=== PATIENT | female | born 1975 | race Caucasian/White ===

== ENCOUNTER → 2018-01-13 | Day surgery (SDC) | payer BC ==
[2018-01-12 10:03] LABS: BASOPHILS % (AUTO) 0.5 % (0-1); EOSINOPHILS # (AUTO) 0.1 X10'3 (0-0.9); EOSINOPHILS % (AUTO) 2.6 % (0-6); LYMPHOCYTES # (AUTO) 1.9 X10'3 (1.1-4.8); LYMPHOCYTES % (AUTO) 32.6 % (21-51); MEAN CORPUSCULAR HEMOGLOBIN 30.1 PG (27.0-31.0); MEAN CORPUSCULAR HGB CONC 34.9 % (33.0-36.5); MEAN CORPUSCULAR VOLUME 86.2 FL (78-98); MEAN PLATELET VOLUME 8.4 FL (7.4-10.4); MONOCYTES # (AUTO) 0.4 X10'3 (0-0.9); MONOCYTES % (AUTO) 6.5 % (2-12); NEUTROPHILS # (AUTO) 3.3 X10'3 (1.8-7.7); NEUTROPHILS % (AUTO) 57.8 % (42-75); PRE OP HEMATOCRIT 40.1 % (35.0-45.0); PRE OP PLATELET COUNT 275 X10'3 (140-440); RED BLOOD COUNT 4.65 X10'6 (4.20-5.60); RED CELL DISTRIBUTION WIDTH 14.5 % (11.5-14.5)
[2018-01-12 10:21] LABS: ALBUMIN 3.6 G/DL (3.4-5.0); ALBUMIN/GLOBULIN RATIO 0.9 (1.1-1.5); ALKALINE PHOSPHATASE 42 IU/L (46-116); BLOOD UREA NITROGEN 9 MG/DL (7-18); BUN/CREATININE RATIO 10.7 (6.6-38.0); CALCIUM 8.9 MG/DL (8.5-10.1); CHLORIDE 106 MMOL/L (99-107); CREATININE 0.84 MG/DL (0.40-0.90); PRE OP ALT 32 U/L (30-65); PRE OP ANION GAP 7 (8-16); PRE OP AST 17 U/L (10-37); PRE OP BILIRUB, TOTAL 0.3 MG/DL (0.0-1.0); PRE OP GLUCOSE 90 MG/DL (70-104); PRE OP POTASSIUM 4.1 MMOL/L (3.4-5.1); PRE OP SODIUM 141 MMOL/L (135-145); TOTAL CARBON DIOXIDE 27.9 MMOL/L (24-32); TOTAL PROTEIN 7.5 G/DL (6.4-8.2); eGFR 74 ML/MIN
[2018-01-12 10:36] LABS: HCG SERUM QL NEGATIVE
[~2018-01-13] VITALS: Ht 160 cm; Wt 105.2 kg
[2018-01-13] VITALS (9 sets, daily range): BP systolic 120–133; BP diastolic 72–79
[~2018-01-13] MED LIST: BUPIVAcaine 0.5% inj/PF 30 ml vial ONE; CITA20TA11 PO; LEVO150T PO; LIDOcaine 2% (20mg/ml) 5ml vial ONE; MORPHINE 2MG in 2ml NS syringe IV PRN; dexamethasone sod phosphate 4mg/ml inj. ONE; ePHEDrine 50MG/ML INJ. ONE; famotidine 20mg tablet PO ONE; fentaNYL/PF 50MCG/1 ML 2ML syringe IV PRN; fentaNYL/PF 50MCG/1 ML 2ML syringe ONE; hydrALAZINE 20mg/ml inj. IV PRN; labetalol 5mg/ml 20ml inj. IV PRN; midazolam 2 mg/2 ml injection ONE; morphine 4 MG/ML inj SYRINge IV PRN; ondansetron/PF 4mg/2ml inj IV PRN; ondansetron/PF 4mg/2ml inj ONE; oxyCODONE/APAP 5-325mg tablet PO ONE; propofol inj 20 ML IV ONE; ringers solution, lacted 1,000 ML IV SCH; rocuronium 10mg/ml inj IV ONE; sevoflurane 250ml liquid IH ONE
== END | disposition home or self-care (01) ==
LOC: PAS 09:52
PROVIDERS: ATTEND Obstetrics & Gynecology
DX: D27.0 Benign neoplasm of right ovary (principal); N83.8 Other noninflammatory disorders of ovary, fallopian tube and broad ligament; N73.6 Female pelvic peritoneal adhesions (postinfective); E03.9 Hypothyroidism, unspecified; F32.9 Major depressive disorder, single episode, unspecified; F41.9 Anxiety disorder, unspecified; E66.9 Obesity, unspecified; Z68.41 Body mass index [BMI] 40.0-44.9, adult; Z90.89 Acquired absence of other organs; Z90.711 Acquired absence of uterus with remaining cervical stump; Z98.890 Other specified postprocedural states; Z79.899 Other long term (current) drug therapy
CPT/HCPCS: 36415; 58661; 80053; 84703; 85025; 86885; 86900; 86901; J1100; J2001; J2250; J2270; J2405; J2704; J3010; J3490; J7120; A6250; A7000; J2274

== ENCOUNTER 2021-12-17 20:12 | Emergency (ER) | payer BC ==
[~2021-12-17] VITALS: Ht 160 cm; Wt 111.0 kg
[~2021-12-17 20:12] MED LIST changes: -BUPIVAcaine 0.5% inj/PF 30 ml vial ONE; -CITA20TA11 PO; +CITA20TA28 PO; -LIDOcaine 2% (20mg/ml) 5ml vial ONE; -MORPHINE 2MG in 2ml NS syringe IV PRN; -dexamethasone sod phosphate 4mg/ml inj. ONE; -ePHEDrine 50MG/ML INJ. ONE; -famotidine 20mg tablet PO ONE; -fentaNYL/PF 50MCG/1 ML 2ML syringe IV PRN; -fentaNYL/PF 50MCG/1 ML 2ML syringe ONE; -hydrALAZINE 20mg/ml inj. IV PRN; -labetalol 5mg/ml 20ml inj. IV PRN; -midazolam 2 mg/2 ml injection ONE; -morphine 4 MG/ML inj SYRINge IV PRN; -ondansetron/PF 4mg/2ml inj IV PRN; -ondansetron/PF 4mg/2ml inj ONE; -oxyCODONE/APAP 5-325mg tablet PO ONE; -propofol inj 20 ML IV ONE; -ringers solution, lacted 1,000 ML IV SCH; -rocuronium 10mg/ml inj IV ONE; -sevoflurane 250ml liquid IH ONE
[2021-12-17 20:58] LABS: BASOPHILS # (AUTO) 0.1 X10'3 (0-0.2); BASOPHILS % (AUTO) 0.7 % (0-1); EOSINOPHILS # (AUTO) 0.2 X10'3 (0-0.9); EOSINOPHILS % (AUTO) 2.7 % (0-6); HEMATOCRIT 43.7 % (35.0-45.0); HEMOGLOBIN 14.6 g/dl (12.0-16.0); LYMPHOCYTES # (AUTO) 2.9 X10'3 (1.1-4.8); LYMPHOCYTES % (AUTO) 35.1 % (21-51); MEAN CORPUSCULAR HEMOGLOBIN 29.6 PG (27.0-31.0); MEAN CORPUSCULAR HGB CONC 33.3 g/dL (33.0-36.5); MEAN CORPUSCULAR VOLUME 88.9 FL (78-98); MEAN PLATELET VOLUME 8.2 FL (7.4-10.4); MONOCYTES # (AUTO) 0.5 X10'3 (0-0.9); MONOCYTES % (AUTO) 6.5 % (2-12); NEUTROPHILS # (AUTO) 4.6 X10'3 (1.8-7.7); PLATELET COUNT 349 X10'3 (140-440); RED BLOOD COUNT 4.91 X10'6 (4.20-5.60); RED CELL DISTRIBUTION WIDTH 14.3 % (11.5-14.5); WHITE BLOOD COUNT 8.3 X10'3 (4.5-11.0)
[2021-12-17 21:12] LABS: ALANINE AMINOTRANSFERASE 36 U/L (12-78); ALBUMIN 3.9 G/DL (3.4-5.0); ALBUMIN/GLOBULIN RATIO 1.1 (1.1-1.5); ALKALINE PHOSPHATASE 52 IU/L (46-116); ANION GAP 11 (8-16); ASPARTATE AMINO TRANSFERASE 20 U/L (10-37); BILIRUBIN,TOTAL 0.2 MG/DL (0.1-1.0); BLOOD UREA NITROGEN 11 MG/DL (7-18); BUN/CREATININE RATIO 11.2 (6.6-38.0); CALCIUM 9.2 MG/DL (8.5-10.1); CHLORIDE 104 MMOL/L (99-107); CREATININE 0.98 MG/DL (0.40-0.90); GLUCOSE 108 MG/DL (70-104); POTASSIUM 3.8 MMOL/L (3.5-5.1); SODIUM 141 MMOL/L (135-145); TOTAL CARBON DIOXIDE 25.7 MMOL/L (24-32); TOTAL PROTEIN 7.5 G/DL (6.4-8.2); eGFR 61 ML/MIN
--- NOTE | 2021-12-18 | NUR ---
PT ROOMED. ASSUMED CARE.
[2021-12-18] MEDS ORDERED: aspirin 81mg tab.chew PO ONE (02:40)
[2021-12-18 02:53] VITALS: BP 144/94
== END 2021-12-18 02:59 | disposition home or self-care (01) ==
LOC: ER 20:14
DX: I10 Essential (primary) hypertension (principal)
CPT/HCPCS: 36415; 71045; 76700; 80053; 83880; 84484; 85025; 85651; 93005; 99285

== ENCOUNTER 2022-06-22 07:50 | Emergency (ER) | payer BC ==
[~2022-06-22] VITALS: Ht 160 cm; Wt 111.8 kg
[2022-06-22 07:54] VITALS: BP 174/98
[2022-06-22 08:15] LABS: CLARITY,URINE SLIGHTLY CLOUDY (Clear); COLOR,URINE YELLOW (Yellow); GLUCOSE, URINE NEGATIVE (Neg); KETONES,URINE NEGATIVE (Neg); LEUKOCYTE ESTERASE ,URINE NEGATIVE (Neg); NITRITES, URINE NEGATIVE (Neg); OCCULT BLOOD,URINE TRACE-LYSED (Neg); PROTEIN,URINE NEGATIVE (Neg); UROBILINOGEN,URINE 0.2 E.U/dL (0.2-1.0)
[2022-06-22 08:21] LABS: UA COLLECTION TYPE CLN CATCH MIDSTREAM
[2022-06-22 08:23] LABS: MUCUS STRANDS MODERATE /LPF (Neg); RBC,URINE 0-2 /HPF (0-2); SQUAMOUS EPITHELIAL CELL,UR MANY /LPF (FEW); WBC,URINE 0-4 /HPF (0-4)
[2022-06-22 08:24] LABS: BACTERIA,URINE NONE SEEN /HPF (Neg); FINE GRANULAR CAST 0-3 /LPF (NEGATIVE); HYALINE CASTS 0-3 /LPF (NEGATIVE)
--- NOTE | 2022-06-22 08:57 | NUR ---
dr. alexandra at bedside.
[2022-06-22 09:20] LABS: BASOPHILS % (AUTO) 0.7 % (0-1); EOSINOPHILS # (AUTO) 0.1 X10'3 (0-0.9); EOSINOPHILS % (AUTO) 2.3 % (0-6); HEMATOCRIT 39.8 % (35.0-45.0); HEMOGLOBIN 13.6 g/dl (12.0-16.0); LYMPHOCYTES % (AUTO) 32.3 % (21-51); MEAN CORPUSCULAR HEMOGLOBIN 29.7 PG (27.0-31.0); MEAN CORPUSCULAR HGB CONC 34.2 g/dL (33.0-36.5); MEAN CORPUSCULAR VOLUME 86.8 FL (78-98); MEAN PLATELET VOLUME 8.1 FL (7.4-10.4); MONOCYTES # (AUTO) 0.5 X10'3 (0-0.9); MONOCYTES % (AUTO) 7.2 % (2-12); NEUTROPHILS # (AUTO) 3.6 X10'3 (1.8-7.7); NEUTROPHILS % (AUTO) 57.5 % (42-75); PLATELET COUNT 268 X10'3 (140-440); RED BLOOD COUNT 4.58 X10'6 (4.20-5.60); RED CELL DISTRIBUTION WIDTH 14.1 % (11.5-14.5); WHITE BLOOD COUNT 6.3 X10'3 (4.5-11.0)
[2022-06-22 09:32] LABS: ALANINE AMINOTRANSFERASE 31 U/L (12-78); ALBUMIN 3.4 G/DL (3.4-5.0); ALKALINE PHOSPHATASE 42 IU/L (46-116); ANION GAP 9 (8-16); ASPARTATE AMINO TRANSFERASE 20 U/L (10-37); BILIRUBIN,TOTAL 0.2 MG/DL (0.1-1.0); BLOOD UREA NITROGEN 10 MG/DL (7-18); BUN/CREATININE RATIO 11.4 (6.6-38.0); CALCIUM 8.4 MG/DL (8.5-10.1); CHLORIDE 106 MMOL/L (99-107); CREATININE 0.88 MG/DL (0.40-0.90); GLUCOSE 102 MG/DL (70-104); LIPASE 124 U/L (73-393); POTASSIUM 4.2 MMOL/L (3.5-5.1); SODIUM 139 MMOL/L (135-145); TOTAL CARBON DIOXIDE 23.8 MMOL/L (24-32); TOTAL PROTEIN 6.9 G/DL (6.4-8.2); eGFR 69 ML/MIN
[2022-06-22] MEDS ORDERED: POLY119P2 PO (10:26)
== END 2022-06-22 10:49 | disposition home or self-care (01) ==
LOC: ER 07:50
DX: K59.00 Constipation, unspecified (principal); R10.9 Unspecified abdominal pain; I10 Essential (primary) hypertension; Z90.710 Acquired absence of both cervix and uterus
CPT/HCPCS: 36415; 76700; 76856; 80053; 81001; 83690; 85025; 93976; 99284

== ENCOUNTER 2024-08-14 17:02 | Emergency (ER) | payer BC ==
[~2024-08-14] VITALS: Ht 157.5 cm; Wt 110.9 kg
[~2024-08-14 17:02] MED LIST changes: +POLY119P2 PO
[2024-08-14] MEDS: LIDOcaine 1% 30ml preserv. free vial IJ STA (17:37)
[2024-08-14] MEDS ORDERED: SULF1TAB49 PO (17:38)
[2024-08-14 18:23] VITALS: BP 108/68; PULSE 74; RESP 14; TEMP 98; O2SAT 99
== END 2024-08-14 18:26 | disposition home or self-care (01) ==
LOC: ER 17:03
DX: L03.011 Cellulitis of right finger (principal); I10 Essential (primary) hypertension; Z79.2 Long term (current) use of antibiotics; Z79.899 Other long term (current) drug therapy; Z90.710 Acquired absence of both cervix and uterus
CPT/HCPCS: 10060; 99283; A6222

== ENCOUNTER 2024-09-12 12:24 | Emergency (ER) | payer BC ==
[~2024-09-12] VITALS: Ht 157.5 cm; Wt 108.1 kg
[2024-09-12 12:41] VITALS: TEMP 98.8
[2024-09-12 13:25] LABS: BASOPHILS # (AUTO) 0.1 X10'3 (0-0.2); BASOPHILS % (AUTO) 0.6 % (0-1); EOSINOPHILS % (AUTO) 0.6 % (0-6); HEMATOCRIT 46.9 % (35.0-45.0); HEMOGLOBIN 15.4 g/dl (12.0-16.0); LYMPHOCYTES # (AUTO) 1.9 X10'3 (1.1-4.8); MEAN CORPUSCULAR HEMOGLOBIN 29.6 PG (27.0-31.0); MEAN CORPUSCULAR HGB CONC 32.8 g/dL (33.0-36.5); MEAN CORPUSCULAR VOLUME 90.4 FL (78-98); MEAN PLATELET VOLUME 8.2 FL (7.4-10.4); MONOCYTES # (AUTO) 0.5 X10'3 (0-0.9); MONOCYTES % (AUTO) 6.7 % (2-12); NEUTROPHILS # (AUTO) 5.4 X10'3 (1.8-7.7); NEUTROPHILS % (AUTO) 68.1 % (42-75); PLATELET COUNT 270 X10'3 (140-440); RED BLOOD COUNT 5.19 X10'6 (4.20-5.60); RED CELL DISTRIBUTION WIDTH 15.1 % (11.5-14.5); WHITE BLOOD COUNT 7.9 X10'3 (4.5-11.0)
[2024-09-12 13:38] LABS: ALANINE AMINOTRANSFERASE 30 U/L (12-78); ALBUMIN 3.7 G/DL (3.4-5.0); ALBUMIN/GLOBULIN RATIO 0.9 (1.1-1.5); ALKALINE PHOSPHATASE 49 IU/L (46-116); ANION GAP 8 (8-16); ASPARTATE AMINO TRANSFERASE 23 U/L (10-37); BILIRUBIN,TOTAL 0.4 MG/DL (0.1-1.0); BLOOD UREA NITROGEN 12 MG/DL (7-18); BUN/CREATININE RATIO 9.3 (10.0-20.0); CALCIUM 8.9 MG/DL (8.5-10.1); CHLORIDE 105 MMOL/L (99-107); CREATININE 1.29 MG/DL (0.40-0.90); GLUCOSE 104 MG/DL (70-104); POTASSIUM 3.9 MMOL/L (3.5-5.1); SODIUM 139 MMOL/L (135-145); TOTAL CARBON DIOXIDE 25.8 MMOL/L (24-32); TOTAL PROTEIN 7.7 G/DL (6.4-8.2); eCRCL 42 ML/MIN; eGFR 44 ML/MIN
[2024-09-12 13:46] LABS: PRO BRAIN NATRIURETIC PEPTIDE 34 PG/ML (0-125)
[2024-09-12] MEDS ORDERED: ketorolac trometh 15mg/ml vial 15 MG/ML ML IM ONE (14:55)
[2024-09-12] MEDS: LORazepam 2 mg/ml vial IM ONE (15:03)
[2024-09-12] MEDS: ketorolac trometh 30MG/ML vial 30 MG/ML VIAL IM ONE (15:03)
[2024-09-12 15:58] VITALS: BP 102/68; PULSE 85; RESP 14; O2SAT 100
== END 2024-09-12 15:52 | disposition home or self-care (01) ==
LOC: ER 12:25
DX: R51.9 Headache, unspecified (principal); F41.9 Anxiety disorder, unspecified; R42 Dizziness and giddiness; R06.02 Shortness of breath; I10 Essential (primary) hypertension; Z90.710 Acquired absence of both cervix and uterus; Z79.899 Other long term (current) drug therapy; Z72.89 Other problems related to lifestyle
CPT/HCPCS: 36415; 71045; 80053; 83880; 84484; 85025; 93005; 96372; 99285; J1885; J2060

== ENCOUNTER 2025-04-10 08:25 | Emergency (ER) | payer BC ==
[~2025-04-10] VITALS: Ht 160 cm; Wt 113.0 kg
[~2025-04-10 08:25] MED LIST changes: +CITA-178 PO; -CITA20TA28 PO
[2025-04-10 08:29] VITALS: BP 211/100; PULSE 72; RESP 18; O2SAT 98
--- NOTE | 2025-04-10 09:03 | RADIOLOGY REPORT ---
DI SHOULDER, COMPLETE (MIN 2 VWS) INDICATION: LT.Shoulder Pain TECHNICAL DATA: 3 views were obtained of the left shoulder. COMPARISON: None FINDINGS: There is no fracture or focal bone abnormality. The glenohumeral joint is normally maintained. The ac romioclavicular joint appears normal. The humeral head is not high riding. Adjacent soft tissues are within normal limits. IMPRESSION: No acute fracture or dislocation of the left shoulder.
--- NOTE | 2025-04-10 10:47 | Physician Documentation ---
History of Present Illness ~ Chief Complaint: Shoulder pain Stated Complaint: NECK AND BACK PAIN Time Seen by MD: 08:52 Primary Medical Doctor: [facility]: Dr. Khadijah HUNTLEY Patient is seen today with complaints of left-sided neck and shoulder pain and now she is complaining of some left lower leg pain and sciatica. Patient denies any chest pain or shortness of breath or abdominal pain or nausea , vomiting, diarrhea. Patient denies any injury. She states her back and shoulder muscle tightness has been developing over the last month or so. 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 Tetanus within 5 years?: Yes Medication Reconciliation Allergies: Coded Allergies: No Known Allergies (Unverified , 04/10/25) Scheduled Citalopram Hydrobromide* (Celexa*), 2 TAB PO DAILY, (Reported) Levothyroxine Sodium (Synthroid), 1 TAB PO DAILY, (Reported) Polyethylene Glycol 3350 (Miralax), 17 GM PO DAILY Past Medical History Past Medical History: Hypertension, Constipation Past Surgical History: hysterectomy Smoking Status: Never smoker Alcohol Use: Occasionally Drug Use: none Lives with: Family Lives In: Home Review of Systems Constitutional: Denies: chills, fever, weakness Eyes: Denies: pain, blurred vision ENT: Denies: ear pain, nose pain, throat pain, mouth pain Respiratory: Denies: cough, shortness of breath Cardiovascular: Denies: chest pain, palpitations Gastrointestinal: Denies: abdominal pain, nausea, vomiting Genitourinary: Denies: burning, dysuria Female Genitalia: Denies: vaginal discharge, pelvic pain Neurological: Denies: headache, dizziness Musculoskeletal: Denies: pain, swelling Integumentary: Denies: rash, lesions Allergic/Immunologic: Denies: hives, itching Hematologic/Lymphatic: Denies: no symptoms reported Psychiatric: Denies: depression, anxiety Physical Exam Vital Signs: Temperature: 97.1, Source: Temporal, Heart Rate: 72, Respiratory Rate: 18, BP: 211/100, Pulse Oximetry: 98, Weight: 113.000 Physical Exam General: Awake and Alert, no acute distress. HEENT: Conjunctiva pink, Sclera clear, Mucus Membranes moist. Neck: Supple without masses and tenderness. Resp: Unlabored. Lungs clear to auscultation bilaterally. Heart: Regular Rate and rhythm, normal S1 and S2 without murmur, rub or gallop. Musculoskeletal: Patient on exam does have significant tenderness to palpation in the area of the levator scapulae and paraspinal muscles of the upper thoracic and cervical spine area. Patient has near full range of motion of the left shoulder and left hip in all planes of motion. Patient is neurovascularly intact distally. Motor function is intact distally. Strength is intact. I do not appreciate any bony prominence tenderness to palpation. Extremities: No cyanosis,clubbing or edema. Skin: Warm and Dry. Progress Results/Orders Results/Orders Vital Signs 04/10/25 08:29 Temp 97.1 Pulse 72 Resp 18 B/P (MAP) 211/100 Pulse Ox 98 EKG/XRAY/CT/US/VASC/MRI Bone/Soft Tissue X-Ray (Ext.) : Additional Comment X-ray of left shoulder interpreted by myself today shows no sign of acute fracture, no osteolytic or blastic lesions, bones in anatomic alignment. DIAGNOSTIC RADIOLOGY Patient: ARCHANA HICKMAN Medical Record: [id number] : 1975, Age: 49 Sex: Female Location: ER Patient Status: [facility] ER Service Date/Time: 04/10/25831 Ordering Physician: BARRINGTON TUTTLE MD Exam: SHOULDER, COMPLETE (MIN 2 VWS) DI SHOULDER, COMPLETE (MIN 2 VWS) INDICATION: LT.Shoulder Pain TECHNICAL DATA: 3 views were obtained of the left shoulder. COMPARISON: None FINDINGS: There is no fracture or focal bone abnormality. The glenohumeral joint is normally maintained. The acromioclavicular joint appears normal. The humeral head is not high riding. Adjacent soft tissues are within normal limits. IMPRESSION: No acute fracture or dislocation of the left shoulder. Electronically Signed by:LOWELL HAYES MD Date & Time: 04/10/25899 Dictated by: LOWELL HAYES MD Dictation date and time: 04/10/25899 Primary Care Provider: NO PRIMARY CARE PROVIDER cc: BARRINGTON TUTTLE MD ~ Medical Decision Making Findings Patient is seen today with complaints of left-sided neck and shoulder pain and now she is complaining of some left lower leg pain and sciatica. Patient denies any chest pain or shortness of breath or abdominal pain or nausea , vomiting, diarrhea. Patient denies any injury. She states her back and shoulder muscle tightness has been developing over the last month or so. She states she does not regularly exercise and recently has been having increased work with her grand kids picking them up and such. Patient will follow up with primary care and keep appointment with physical therapy. I recommended patient see massage therapist and take the muscle relaxants as prescribed. She will continue Tylenol and ibuprofen as prescribed. Patient will return to ED with any worsening, concerning or changing symptoms. Patient declined Toradol shot today. Departure Disposition: HOME / SELF CARE / HOMELESS Impression: Primary Impression: Shoulder pain Qualified Codes: M25.512 - Pain in left shoulder Additional Impressions: Levator scapula syndrome Muscle spasm Condition: Stable Discharge Instructions: Muscle Cramps and Spasms, [id number] Additional Instructions: Patient will follow up with primary care and keep appointment with physical therapy. I recommended patient see massage therapist and take the muscle relaxants as prescribed. She will continue Tylenol and ibuprofen as prescribed. Patient will return to ED with any worsening, concerning or changing symptoms. Patient declined Toradol shot today. Referrals: NO PRIMARY CARE PROVIDER (PCP) Signature Scribe Signature: No scribe Attestation: No scribe DANILO SON PAC Apr 10, 2025 10:47
[2025-04-10 11:10] VITALS: TEMP 97.1
== END 2025-04-10 11:12 | disposition home or self-care (01) ==
LOC: ER 08:25
DX: M25.512 Pain in left shoulder (principal); M62.838 Other muscle spasm; I10 Essential (primary) hypertension; Z90.710 Acquired absence of both cervix and uterus; Z79.899 Other long term (current) drug therapy; Z72.89 Other problems related to lifestyle
CPT/HCPCS: 73030; 99283